=== PATIENT | male | born 1985 | race Caucasian/White ===

== ENCOUNTER 2017-09-03 20:13 | Emergency (ER) | payer OTHER ==
[~2017-09-03] VITALS: Ht 188 cm; Wt 70.0 kg
[~2017-09-03 20:13] MED LIST: DARV PO; LANSO30 PO/TUBE; META800 PO; Z.0.NO CURRENT MEDS
[2017-09-03 20:20] VITALS: BP 122/59; PULSE 77; RESP 16; TEMP 97.7; O2SAT 100
[2017-09-03 20:51] VITALS: BP 120/71; RESP 17
[2017-09-03 20:52] VITALS: BP 120/72; RESP 18
--- NOTE | 2017-09-03 22:40 | RADRPT ---
EXAM DATE/TIME: 09/03/2017 22:04 [place] COMPARISON: No previous studies available for comparison. INDICATIONS : Trauma; fall. RADIATION DOSE: 52.13 CTDIvol (mGy) MEDICAL HISTORY : Non-responsive. SURGICAL HISTORY : Non-responsive. ENCOUNTER: Initial ACUITY: 1 day PAIN SCALE: 5/10 LOCATION: cranial TECHNIQUE: Multiple contiguous axial images were obtained of the head. Using automated exposure control and adj ustment of the mA and/or kV according to patient size, radiation dose was kept as low as reasonably a chievable to obtain optimal diagnostic quality images. DICOM format image data is available electro nically for review and comparison. FINDINGS: CEREBRUM: The ventricles are normal for age. No evidence of midline shift, mass lesion, hemorrhage or acute in farction. No extra-axial fluid collections are seen. POSTERIOR FOSSA: The cerebellum and brainstem are intact. The 4th ventricle is midline. The cerebellopontine angle i s unremarkable. EXTRACRANIAL: The visualized portion of the orbits is intact. SKULL: The calvaria is intact. No evidence of skull fracture. CONCLUSION: Negative noncontrast head CT. Kunal Tolbert MD on September 03, 2017 at 22:38 Board Certified Radiologist. This report was verified electronically.
--- NOTE | 2017-09-03 22:44 | PD ---
HPI Chief Complaint: Syncope/Near-Syncope Time Seen by Provider: 20:33 Travel History International Travel<30 days: No Contact w/Intl Traveler<30days: No Traveled to known affect area: No History of Present Illness HPI Patient while at home was trying to bend down to get some object when he got lightheaded and dizzy and fell hitting his right bahai area. This was due to the patient taking Ultram and Flexeril just prior to Patient states allergy to codeine that he does not recall what it reaction was Patient denies any past medical or past surgical history PFSH Past Medical History Medical History: Denies Significant Hx Blood Disorders: No Diminished Hearing: No Tetanus Vaccination: Unknown Influenza Vaccination: No Past Surgical History Tonsillectomy: Yes Social History Alcohol Use: Yes (OCCASSIONAL) Tobacco Use: No Substance Use: No Allergies-Medications (Allergen,Severity, Reaction): Coded Allergies: codeine (Unverified Allergy, Intermediate, 09/03/17) Reported Meds & Prescriptions Reported Meds & Active Scripts Active No Active Prescriptions or Reported Medications Review of Systems General / Constitutional: No: Fever Eyes: No: Visual changes HENT: No: Headaches Cardiovascular: No: Chest Pain or Discomfort Respiratory: No: Shortness of Breath Gastrointestinal: No: Abdominal Pain Genitourinary: No: Dysuria Musculoskeletal: No: Pain Skin: No Rash Neurologic: Positive: Syncope Psychiatric: No: Depression Endocrine: No: Polydipsia Hematologic/Lymphatic: No: Easy Bruising Physical Exam Narrative GENERAL: SKIN: Warm and dry. Right temporal region has a small abrasion without laceration HEAD: Atraumatic. Normocephalic. EYES: Pupils equal and round. No scleral icterus. No injection or drainage. ENT: No nasal bleeding or discharge. Mucous membranes pink and moist. NECK: Trachea midline. No JVD. CARDIOVASCULAR: Regular rate and rhythm. RESPIRATORY: No accessory muscle use. Clear to auscultation. Breath sounds equal bilaterally. GASTROINTESTINAL: Abdomen soft, non-tender, nondistended. MUSCULOSKELETAL: Extremities without clubbing, cyanosis, or edema. No obvious deformities. NEUROLOGICAL: Awake and alert. No obvious cranial nerve deficits. Motor grossly within normal limits. Five out of 5 muscle strength in the arms and legs. Normal speech. PSYCHIATRIC: Appropriate mood and affect; insight and judgment normal. Data Data Last Documented VS Vital Signs Date Time Temp Pulse Resp B/P (MAP) Pulse Ox O2 Delivery O2 Flow Rate FiO2 09/03/17 20:52 84 18 120/72 (88) 09/03/17 20:20 97.7 100 Orders Orders Urinalysis - C+S If Indicated (09/03/17 20:34) Ct Brain W/O Iv Contrast(Rout) (09/03/17 20:34) Orthostatic Vital Signs (09/03/17 20:34) Blood Glucose (09/03/17 20:34) Drug Screen, Random Urine (09/03/17 20:34) Labs Laboratory Tests Test 09/03/17 23:00 Urine Color LIGHT-YELLOW Urine Turbidity CLEAR Urine pH 6.5 Urine Specific [place] 1.011 Urine Protein NEG mg/dL Urine Glucose (UA) NEG mg/dL Urine Ketones NEG mg/dL Urine Occult Blood NEG Urine Nitrite NEG Urine Bilirubin NEG Urine Urobilinogen LESS THAN 2.0 MG/DL Urine Leukocyte Esterase NEG Urine WBC 1 /hpf Urine Mucus FEW /lpf Microscopic Urinalysis Comment CULT NOT INDICATED Urine Opiates Screen NEG Urine Barbiturates Screen NEG Urine Amphetamines Screen NEG Urine Benzodiazepines Screen NEG Urine Cocaine Screen NEG Urine Cannabinoids Screen NEG MDM Medical Decision Making Medical Screen Exam Complete: Yes Emergency Medical Condition: Yes Medical Record Reviewed: Yes Interpretation(s) EKG shows normal sinus rhythm, 68 bpm, incomplete right bundle branch block pattern, but no STEMI pattern noted. Differential Diagnosis ich v skull fx v hypoglycemia v dehydration v stemi Narrative Course CT head is negative for any intracranial hemorrhage, no skull fracture, No evidence of hypoglycemia on Accu-Chek Negative orthostatics Diagnosis Primary Impression: Syncope Qualified Codes: R55 - Syncope and collapse Patient Instructions: General Instructions, Syncope (ED) Scripts No Active Prescriptions or Reported Meds Disposition: 01 DISCHARGE HOME Condition: Stable Sy Veronica MD Sep 03, 2017 22:44
[2017-09-03 23:24] LABS: BILIRUBIN, URINE NEG (NEG); BLOOD, URINE NEG (NEG); GLUCOSE,URINE NEG (NEG); KETONE, URINE NEG (NEG); MUCUS URINE FEW /lpf (OCC); NITRITE,URINE NEG (NEG); PH, URINE 6.5 (5.0-8.5); URINE COLOR LIGHT-YELLOW (YELLW/STRAW); URINE LEUKOCYTE ESTERASE NEG (NEG)
--- NOTE | 2017-09-04 14:26 | EKG ---
Date Performed: 09/03/2017 Time Performed: 20:38:04 PTAGE: 32 years EKG: Sinus rhythm LEFT ATRIAL ENLARGEMENT MARKED RIGHT AXIS DEVIATION INCOMPLETE RIGHT BUNDLE BRANCH BLOCK MODERATE ST DEPRESSION ABNORMAL QRS-T ANGLE ABNORMAL ECG Since PREVIOUS TRACING , no significant change noted PREVIOUS TRACIN07/23/2002 20.39 DOCTOR: Jackie Galvan Interpretating Date/Time 09/04/2017 14:25:07
== END 2017-09-04 00:30 | disposition home or self-care (01) ==
LOC: NEPD 20:13
DX: R55 Syncope and collapse (principal)
CPT/HCPCS: 70450; 80307; 81001; 93005